=== PATIENT | female | born 1975 | race African-American/Black ===

== ENCOUNTER 2017-09-01 10:41 | Emergency (ER) | payer BC ==
[~2017-09-01] VITALS: Ht 165.1 cm; Wt 93.9 kg
[2017-09-01 10:44] VITALS: BP 123/78; Ht 165.1 cm; Wt 93.9 kg
== END 2017-09-01 11:40 | disposition home or self-care (01) ==
LOC: ED 10:41
DX: L85.3 Xerosis cutis (principal); W57.XXXA Bitten or stung by nonvenomous insect and other nonvenomous arthropods, initial encounter; Y93.89 Activity, other specified; Y92.89 Other specified places as the place of occurrence of the external cause; Y99.8 Other external cause status